=== PATIENT | male | born 1960 | race American Indian/Alaskan Native ===

== ENCOUNTER 2017-04-26 19:50 | Emergency (ER) | payer OTHER ==
--- NOTE | 2017-04-26 22:50 | Emergency Department Report ---
ED Lower Extremity HPI - General Chief Complaint: Extremity Injury, Lower Stated Complaint: POSS BROKEN LEFT LEG Time Seen by Provider: 04/26/17 22:17 Source: patient, family Mode of arrival: Wheelchair Limitations: Language Barrier - Related Data Allergies Allergy/AdvReac Type Severity Reaction Status Date / Time No Known Allergies Allergy Verified 04/26/17 21:04 ED Review of Systems ROS: Stated complaint: POSS BROKEN LEFT LEG Other details as noted in HPI ED Past Medical Hx - Past Medical History Previous Medical History?: No - Surgical History Past Surgical History?: No - Social History Smoking Status: Never Smoker Substance Use Type: None ED Physical Exam - General Limitations: Language Barrier ED Course Vital Signs 04/26/17 20:53 Temperature 99.1 F Pulse Rate 77 Respiratory 16 Rate Blood Pressure 136/93 O2 Sat by Pulse 98 Oximetry Critical care attestation.: If time is entered above; I have spent that time in minutes in the direct care of this critically ill patient, excluding procedure time. ED Disposition Condition: Stable
[2017-04-26] MEDS ORDERED: ZOFRAN ODT PO ONE (22:59)
[2017-04-26] MEDS ORDERED: DILAUDID IM ONE (22:59)
--- NOTE | 2017-04-26 22:59 | Emergency Department Report ---
ED Lower Extremity HPI - General Chief Complaint: Extremity Injury, Lower Stated Complaint: POSS BROKEN LEFT LEG Time Seen by Provider: 04/26/17 22:17 Source: patient, family Mode of arrival: Wheelchair Limitations: Language Barrier - History of Present Illness Initial Comments: Patient here with family member reporting that he had a fall 8 days ago and fractured his ankle. He said he went to the clinic and they put a splint on it and he said he removed the splint this morning because he wanted to take a bath. Patient was Referred to Orthopedic but did not follow-up. Patient was placed on Tylenol 3 and Motrin and said that the Tylenol 3 upset his stomach so he stopped taking it and he is having a lot of pain. Pain is 8 out of 10 to her right ankle. Patient has H/O HTN. Pain is achy and he did not take any pain medicine prior to coming to the emergency room. Patient denies any chest pain or shortness of breath. Denies any pain in his calf. MD Complaint: leg injury, ankle injury, other (pain to right ankle and leg) Onset/Timin -: days(s) Injury: Leg: Right (pain), Ankle: Right (pain) Type of Injury: eversion Place: work Severity: severe Severity scale (0 -10): 8 Improves With: immobilization Worsens With: weight bearing, movement, palpation Context: fall Associated Symptoms: swelling, unable to bear weight. denies: snap/pop sensation, numbness, tingling Treatments Prior to Arrival: spinal immobilization - Related Data Previous Rx's Medication Instructions Recorded Last Taken Type Aspirin EC [Aspirin Enteric Coated 81 mg PO QDAY #30 tablet. 04/27/17 Unknown Rx TAB] Cephalexin [Keflex] 500 mg PO Q8HR #30 cap 04/27/17 Unknown Rx HYDROcodone/APAP 5-325 [[place] 1 each PO Q6HR PRN #16 tablet 04/27/17 Unknown Rx 5/325] Promethazine [Phenergan TAB] 25 mg PO Q8HR PRN #15 tab 04/27/17 Unknown Rx Allergies Allergy/AdvReac Type Severity Reaction Status Date / Time No Known Allergies Allergy Verified 04/26/17 21:04 ED Review of Systems ROS: Stated complaint: POSS BROKEN LEFT LEG Other details as noted in HPI Comment: All other systems reviewed and negative Constitutional: denies: chills, fever Respiratory: no symptoms reported Cardiovascular: denies: chest pain, palpitations, edema, syncope Gastrointestinal: denies: abdominal pain, nausea, vomiting, diarrhea, constipation Musculoskeletal: joint swelling, arthralgia. denies: back pain Skin: denies: rash ED Past Medical Hx - Past Medical History Previous Medical History?: Yes Hx Hypertension: Yes - Surgical History Past Surgical History?: No - Family History Family history: hypertension - Social History Smoking Status: Never Smoker Substance Use Type: None - Medications Home Medications: Home Medications Medication Instructions Recorded Confirmed Last Taken Type Aspirin EC [Aspirin Enteric Coated 81 mg PO QDAY #30 tablet.dr 04/27/17 Unknown Rx TAB] Cephalexin [Keflex] 500 mg PO Q8HR #30 cap 04/27/17 Unknown Rx HYDROcodone/APAP 5-325 [[place] 1 each PO Q6HR PRN #16 tablet 04/27/17 Unknown Rx 5/325] Promethazine [Phenergan TAB] 25 mg PO Q8HR PRN #15 tab 04/27/17 Unknown Rx ED Physical Exam - General Limitations: Language Barrier General appearance: alert, in no apparent distress - Head Head exam: Present: atraumatic, normocephalic, normal inspection - Eye Eye exam: Present: normal appearance, PERRL, EOMI Pupils: Present: normal accommodation - Neck Neck exam: Present: normal inspection, tenderness, full ROM. Absent: lymphadenopathy - Respiratory Respiratory exam: Present: normal lung sounds bilaterally. Absent: respiratory distress, wheezes, rales, rhonchi, stridor, chest wall tenderness, accessory muscle use, decreased breath sounds, prolonged expiratory - Cardiovascular Cardiovascular Exam: Present: regular rate, normal rhythm, normal heart sounds - GI/Abdominal GI/Abdominal exam: Present: soft, normal bowel sounds. Absent: distended, tenderness, guarding, rebound, rigid - Expanded Lower Extremity Exam Right Hip exam: Present: normal inspection, full ROM, pelvic stability. Absent: tenderness, swelling, abrasion, laceration, ecchymosis, deformity, crepidus, dislocation, erythema, external rotation, internal rotation, shortening Upper Leg exam: Present: normal inspection, full ROM. Absent: tenderness, swelling, abrasion, laceration, ecchymosis, deformity, crepidus, dislocation, erythema Knee exam: Present: normal inspection, full ROM, full knee extension. Absent: tenderness, swelling, abrasion, laceration, ecchymosis, deformity, crepidus, dislocation, erythema, effusion, pain w/ pronation/supination, posterior draw sign Lower Leg exam: Present: normal inspection, full ROM. Absent: tenderness, swelling, abrasion, laceration, ecchymosis, deformity, crepidus, dislocation, erythema, palpable cord, Troy's sign Ankle exam: Present: tenderness (right ankle), swelling (right ankle), ecchymosis (also with some blisters at right ankle splint was.), erythema. Absent: normal inspection, full ROM (Limited range of motion to ankle due to swelling,.and fracture), abrasion, laceration, deformity, crepidus, dislocation Foot/Toe exam: Present: full ROM, swelling (pedal edema noted to right foot.), ecchymosis. Absent: normal inspection, tenderness, abrasion, laceration, deformity, crepidus, dislocation, erythema, amputation, puncture wound, foreign body, calcaneal tenderness, tenderness at base of 5th metatarsal, nail avulsion , subungual hematoma Neuro vascular tendon exam: Present: no vascular compromise, motor deficit ( decreased movement due to fracture ankle), significant pain with passive ROM of distal joint. Absent: pulse deficit, abnormal cap refill, sensory deficit, tendon deficit, extremity cold to touch, pallor, abnormal 2-point discrimination , decreased fine/light touch, foot drop, peroneal nerve deficit Gait: Positive: unable to bear weight - Back Exam Back exam: Present: normal inspection, full ROM. Absent: tenderness - Neurological Exam Neurological exam: Present: alert, oriented X3, abnormal gait (abnormal gait due to right foot and ankle due to pain and fracture), motor sensory deficit. Absent: reflexes normal - Psychiatric Psychiatric exam: Present: normal affect, normal mood - Skin Skin exam: Present: warm, dry, ecchymosis. Absent: petechiae, pallor, abrasion - Expanded Skin Exam Expanded Type of lesion: Present: other (blisters) Distribution of rash: RLE (foot and ankle) Description of rash: Present: tenderness, swelling, blisters, other (ecchymotic) . Absent: vesicular, petechial, purpuic, crusting, discharge, fluctuant, indurated ED Course Vital Signs 04/26/17 04/27/17 20:53 01:24 Temperature 99.1 F Pulse Rate 77 73 Respiratory 16 18 Rate Blood Pressure 136/93 Blood Pressure 151/90 [Left] O2 Sat by Pulse 98 97 Oximetry - Reevaluation(s) Reevaluation #1: 04/26/17 23:30 Patient given Dilaudid 1 mg IV and Zofran 4 mg ODT for pain and right lower extremity. I spoke with Dr. Mcocnnell who is orthopedic doctor on-call regarding patient presentation. I sent him x-ray films and he reviewed and wants patient splint to be replaced and him to follow up with him in his office in 2 days. Reevaluation #2: 04/27/17 00:[address] Penn regarding patient presentation and he saw patient and okay for splint to be placed. Splint placed and patient is neurovascular intact he has good color, movement, sensation and temperature to toes on right foot. He denies any pain at present. - Orthopedic Splinting/Casting Injury #1 Side: right Upper Extremity Immobilizer: posterior splint Lower Extremity Injury Location: ankle Other Orthopedic Equipment: crutches (with treatment) ED Lower Extremity MDM - Lab Data Result diagrams: 04/26/17 23:20 04/26/17 23:20 Lab Results 04/26/17 04/26/17 04/26/17 Range/Units 23:20 23:20 23:20 WBC 10.9 (4.5-11.0) K/mm3 RBC 4.73 (3.65-5.03) M/mm3 Hgb 13.6 (11.8-15.2) gm/dl Hct 39.6 (35.5-45.6) % MCV 84 (84-94) fl MCH 29 (28-32) pg MCHC 34 (32-34) % RDW 12.8 L (13.2-15.2) % Plt Count 266 (140-440) K/mm3 Lymph % (Auto) 18.9 (13.4-35.0) % [place] % (Auto) 6.6 (0.0-7.3) % Eos % (Auto) 2.2 (0.0-4.3) % Baso % (Auto) 0.3 (0.0-1.8) % Lymph # 2.0 (1.2-5.4) K/mm3 [place] # 0.7 (0.0-0.8) K/mm3 Eos # 0.2 (0.0-0.4) K/mm3 Baso # 0.0 (0.0-0.1) K/mm3 Seg Neutrophils % 72.0 H (40.0-70.0) % Seg Neutrophils # 7.8 H (1.8-7.7) K/mm3 PT 12.9 (12.2-14.9) Sec. INR 0.98 (0.87-1.13) APTT 28.8 (24.2-36.6) Sec. Sodium 137 (137-145) mmol/L Potassium 4.3 (3.6-5.0) mmol/L Chloride 99.4 (98-107) mmol/L Carbon Dioxide 22 (22-30) mmol/L Anion Gap 20 mmol/L BUN 10 (9-20) mg/dL Creatinine 0.5 L (0.8-1.5) mg/dL Estimated GFR > 60 ml/min BUN/Creatinine Ratio 20.00 % Glucose 101 H (75-100) mg/dL Calcium 9.2 (8.4-10.2) mg/dL - Radiology Data Radiology results: report reviewed X-ray of right tib-fib revealed comminuted fracture are noted involving medial malleolus, anterior margin of distal tibia metaphysis and body of [place]. X-ray of right ankle revealed acute comminuted fracture of the medial malleolus , anterior margin of distal tibial metaphysis and Tallar body - Medical Decision Making ED course: Patient here status post removal but is splint today. He had ankle injury status post fall 8 days ago and went to urgent care clinic and was found to have fracture and he had splint placed. He took it off because he needed to have a shower. X-ray report revealed that patient had comminuted fracture is involvement medial malleolus, anterior margin of distal tibia metaphysis and body of [place]. There is NO SIGNIFICANT DISPLACEMENT OF THE FRACTURE FRAGMENTS. Patient was given Tylenol 3 and Motrin and told to follow-up with orthopedic which she did not. He said he is in a lot of pain and Tylenol 3 causes to be very nauseous. Patient was given Dilaudid 1 mg IV and Zofran milligrams ODT which managed pain. See procedure note for placement of splint. I spoke with Dr. PENN regarding patient presentation, clinical findings and x- ray results. He accepts patient and was okay with patient being splinted and to follow-up with orthopedic doctor. I also spoke with Dr. Mcconnell was orthopedic surgeon property condition assessor and I sent him x-ray films and he said it's okay for patient to be splinted and follow up with an him in his office in 2-3 days. Patient also with ecchymotic and blister area to ankle and Dr. Penn assess patient and also Dr. Mcconnell was informed. Posterior ankle splint placed and splint rechecked patient with good color, sensation, movement in temperature to toes on right foot. I discussed the patient and family that he needs to discontinue to Tylenol 3 and I will start him on [place] and he can take along with Motrin. I told him to take medication with food to prevent him from getting nauseous. Patient voiced understanding of discharge diagnosis and treatment plan and need to keep splint on and avoid getting it wet. Patient discharged home with his family with prescription for [place] , Keflex,aspirin and Phenergan. Critical care attestation.: If time is entered above; I have spent that time in minutes in the direct care of this critically ill patient, excluding procedure time. ED Disposition Clinical Impression: Multiple fractures, Arthralgia of multiple sites Traumatic ecchymosis of multiple sites of right lower extremity Qualifiers: Encounter type: initial encounter Qualified Code(s): S80.11XA - Contusion of right lower leg, initial encounter Blister of right ankle without infection Qualifiers: Encounter type: initial encounter Qualified Code(s): S90.521A - Blister ( nonthermal), right ankle, initial encounter Disposition: DC- TO HOME OR SELFCARE Is pt being admited?: No Does the pt Need Aspirin: No Condition: Stable Additional Instructions: Please follow up with orthopedic doctor as instructed Please do not get the splint wet or takes been off. Please do not drive or operate heavy machinery while taking [place] and Phenergan as these medication can take cause drowsiness Take Keflex for prevention of infection Take aspirin once daily. Prescriptions: Aspirin EC [Aspirin Enteric Coated TAB] 81 mg PO QDAY #30 tablet. Cephalexin [Keflex] 500 mg PO Q8HR #30 cap HYDROcodone/APAP 5-325 [[place] 5/325] 1 each PO Q6HR PRN #16 tablet PRN Reason: Pain Promethazine [Phenergan TAB] 25 mg PO Q8HR PRN #15 tab PRN Reason: Nausea Referrals: JAMILA MCCONNELL MD [Staff Physician] - 04/28/17 Forms: Accompanied Note, Work/School Release Form(ED)
--- NOTE | 2017-04-26 23:22 | XRay Report ---
FINAL REPORT PROCEDURE: XR TIBIA FIBULA 2V RT TECHNIQUE: RIGHT ankle radiographs, AP, lateral, and oblique views. CPT 57256 HISTORY: injury COMPARISON: No prior studies are available for comparison. FINDINGS: Fracture (s) and/or Dislocation(s): Comminuted fractures are noted involving medial malleolus, anterior margin of distal tibial metaphysis and a body of talus.. Alignment: There is no significant displacement of the fracture fragments. Joint space(s): Normal. Soft tissues: Moderate degree soft tissue swelling is noted. Bone mineralization: Normal. Foreign bodies: None. Calcaneal spurring: None. IMPRESSION: Comminuted fractures involving the medial malleolus, anterior margin of distal tibia and the body of talus.
--- NOTE | 2017-04-26 23:23 | XRay Report ---
FINAL REPORT PROCEDURE: XR ANKLE 3 RT TECHNIQUE: RIGHT ankle radiographs, AP, lateral, and oblique views. CPT 21696 HISTORY: injury COMPARISON: No prior studies are available for comparison. FINDINGS: Fracture (s) and/or Dislocation(s): Acute comminuted fractures are noted involving the medial malleolus, anterior margin of distal tibial metaphysis and talar body. Alignment: There is no significant. Joint space(s): Unremarkable. Soft tissues: Moderate degree soft tissue swelling is noted. Bone mineralization: Normal. Foreign bodies: None. Calcaneal spurring: None. IMPRESSION: Acute comminuted fractures of medial malleolus, anterior margin of distal tibial metaphysis and talar body.
[2017-04-26] MEDS ORDERED: DILAUDID IV ONE (23:29)
[2017-04-26 23:41] LABS: Basophils % (Auto) 0.3 % (0.0-1.8); Eosinophils % (Auto) 2.2 % (0.0-4.3); Hematocrit 39.6 % (35.5-45.6); Hemoglobin 13.6 gm/dl (11.8-15.2); Mean Corpuscular HGB Conc 34 % (32-34); Mean Corpuscular Hemoglobin 29 pg (28-32); Mean Corpuscular Volume 84 fl (84-94); Platelet Count 266 K/mm3 (140-440); Red Blood Count 4.73 M/mm3 (3.65-5.03); Red Cell Distribution Width 12.8 % (13.2-15.2); White Blood Count 10.9 K/mm3 (4.5-11.0)
[2017-04-26 23:51] LABS: INR 0.98 (0.87-1.13)
[2017-04-26 23:52] LABS: Partial Thromboplastin Time 28.8 Sec. (24.2-36.6)
[2017-04-26 23:57] LABS: Anion Gap 20 mmol/L; Blood Urea Nitrogen 10 mg/dL (9-20); Calcium 9.2 mg/dL (8.4-10.2); Carbon Dioxide 22 mmol/L (22-30); Chloride 99.4 mmol/L (98-107); Glucose 101 mg/dL (75-100); Potassium 4.3 mmol/L (3.6-5.0); Sodium 137 mmol/L (137-145)
[2017-04-27 01:24] VITALS: BP 151/90
== END 2017-04-27 01:29 | disposition home or self-care (01) ==
LOC: ED 19:50
DX: S82.51XA Displaced fracture of medial malleolus of right tibia, initial encounter for closed fracture (principal); S92.121A Displaced fracture of body of right talus, initial encounter for closed fracture; I10 Essential (primary) hypertension; Z79.82 Long term (current) use of aspirin; W19.XXXA Unspecified fall, initial encounter; Y93.89 Activity, other specified; Y92.89 Other specified places as the place of occurrence of the external cause; Y99.8 Other external cause status
CPT/HCPCS: 29515; 36415; 73590; 73610; 80048; 85025; 85610; 85730; 96374; 99284; J1170; Q0162